=== PATIENT | male | born 1975 | race Caucasian/White ===

== ENCOUNTER 2021-08-25 15:49 | Emergency (ER) | payer MEDICAID, SELFPAY ==
[2021-08-25 16:00] VITALS: BP 120/71; PULSE 65; RESP 16; TEMP 37.1; O2SAT 97
--- NOTE | 2021-08-25 16:39 | W.ED.WOUNDLC ---
Documented by User: Nick Gale DO 09/03/21 18:27 HPI - Wound/Laceration General: Chief Complaint: Wound/Laceration Stated Complaint: Left leg injury Time Seen by Provider: 08/25/21 16:14 Source: patient Mode of arrival: ambulatory Limitations: no limitations History of Present Illness: 46-year-old male presents emergency room from urgent care. He had a piece of kiana still he was carrying slipped and he sustained a laceration on the medial posterior aspect of his left calf. He was referred here after initial evaluation in urgent care. It does involve the gastroc muscle. No other injury. Onset (ago): minute(s) Extremity Location: Left: lower leg (Medial mid gastroc) Place: work Patient tetanus UTD: No Context: accidental Associated symptoms: Denies chills, fever(s), foreign body sensation, inability to move, nausea, numbness, pain, syncope or vomiting Review of Systems Const: Denies: fever(s), chills, fatigue or malaise ENMT: Denies: throat pain, ear or mastoid pain, nasal discharge or nasal congestion Card: Denies: syncope Resp: Denies: dyspnea, productive cough or non-productive cough GI: Denies: abdominal pain, nausea or vomiting : Denies: flank pain, difficulty urinating, dysuria, urinary frequency or urinary urgency Skin/Breast: Denies: rash or pruritus PFSH ED PFSH: Family History Sister Diabetes Denies family history of CAD (coronary artery disease) Clotting disorder Psychiatric illness Bleeding disorder Cancer Hypertension Stroke Social History Smoking and tobacco status: never smoked Second hand smoke exposure: No Alcohol intake: current Alcohol intake frequency: holidays/special occasions only Alcohol type: beer and hard liquor Adopted: No Caregiver/support person: Yes Lives independently: Yes Household members: spouse and children Marital status: service: No Current occupational status: employed Current occupation: self Current gender identity: Male Kalpana/[employer]: [employer] Special kalpana needs: Yes (will not recieve blood) Agree to transfusion: No Physical Exam Const: COMMON NORMALS: no acute distress GENERAL APPEARANCE: cooperative and comfortable ORIENTATION/CONSCIOUSNESS: Yes awake, Yes oriented to person, Yes oriented to place and Yes oriented to time HENMT: COMMON NORMALS: normocephalic, atraumatic and hearing grossly normal bilaterally HEAD & SCALP: normocephalic and atraumatic Neck/C-Spine: COMMON NORMALS: no JVD Resp: COMMON NORMALS: normal respiratory effort, No retractions, No use of accessory muscles and clear to auscultation bilaterally AUSCULTATION: clear to auscultation bilaterally Cardio: COMMON NORMALS: no JVD, regular rate, regular rhythm and No murmurs present (Cardio) RATE: regular rate RHYTHM: regular rhythm GI: COMMON NORMALS: Soft to palpation and No hepatosplenomegaly present AUSCULTATION: Yes normoactive bowel sounds PALPATION: Yes Soft to palpation, No Tenderness to palpation present (GI), No Guarding due to palpation present (GI) and Yes No hepatosplenomegaly present Extremity: COMMON NORMALS: capillary refill normal, no clubbing, cyanosis or edema, no calf tenderness and no pedal edema EXTREMITY IMAGE (BACK): 1. laceration Neuro: SENSORIUM/ORIENTATION: Yes oriented to person, Yes oriented to place and Yes oriented to time Skin: COMMON NORMALS: no rashes or lesions noted GENERAL SKIN EXAM: no rashes or lesions noted Course Vital Signs: Vital signs: Vital Signs Temperature 98.7 F 08/25/21 16:00 Pulse Rate 65 08/25/21 16:00 Respiratory Rate 16 08/25/21 16:00 Blood Pressure 120/71 08/25/21 16:00 Pulse Oximetry 97 08/25/21 16:00 Discharge Plan Discharge Patient Disposition: Home Clinical Impression: Laceration, Gastrocnemius tear Condition: Stable Prescriptions: New hydrocodone-acetaminophen 5-325 mg tablet 1 tab PO Q6H PRN (Reason: pain) Qty: 15 0RF Discharge Orders: Discharge ED (Routine); Ordered 08/25/21 Ordered By: Nick Gale Discharge Diet: Usual diet Discharge Activity: Resume usual activity Patient Instructions: Opioid Safety Activity Restrictions/Additional Instructions: Non-weightbearing on the left leg. Keep splint in place until released. design engineering manager will make arrangements for follow-up. Coding Level of Care Code ED Classifying Machine Operator for Chg Fwd Documented by User: SHANNAN Foley 08/26/21 07:07 HPI - Wound/Laceration General: Chief Complaint: Wound/Laceration Stated Complaint: Left leg injury Time Seen by Provider: 08/25/21 16:14 PFSH ED PFSH: Family History Sister Diabetes Denies family history of CAD (coronary artery disease) Clotting disorder Psychiatric illness Bleeding disorder Cancer Hypertension Stroke Social History Smoking and tobacco status: never smoked Second hand smoke exposure: No Alcohol intake: current Alcohol intake frequency: holidays/special occasions only Alcohol type: beer and hard liquor Adopted: No Caregiver/support person: Yes Lives independently: Yes Household members: spouse and children Marital status: service: No Current occupational status: employed Current occupation: self Current gender identity: Male Kalpana/[employer]ian: [employer] Special kalpana needs: Yes (will not recieve blood) Agree to transfusion: No Physical Exam Extremity: OTHER: patient has an approximate 5.5cm laceration to the posterior/medial aspect of his L calf; there is no bleeding currently; laceration involves gastrocnemius fascia and muscle EXTREMITY IMAGE (BACK): 1. laceration Procedures Laceration Laceration 1: Site: lower extremity Side (If applicable): left Size (cm): 5.5 Description: linear Depth: involves muscle layer Local Anesthetic: lidocaine 1% and with epi Amount of anesthesia used (mL): 5.0 Pre-repair: wound explored and irrigated extensively Skin layer closed with: nylon and vicryl Size (cm): 4-0 Number of sutures: 10 Technique: running Muscle layer closed with: vicryl Size: 4-0 Number of sutures: 4 Technique: simple, interrupted Course Vital Signs: Vital signs: Vital Signs Temperature 98.7 F 08/25/21 16:00 Pulse Rate 65 08/25/21 16:00 Respiratory Rate 16 08/25/21 16:00 Blood Pressure 120/71 08/25/21 16:00 Pulse Oximetry 97 08/25/21 16:00 MDM - Wound/Laceration Medical Decision Making I was consulted by Dr. Gale to repair patient's left calf laceration. This was repaired as documented. Other than laceration repair I did not actively participate in patient's care. Plan will be for splint placement following laceration repair. See Dr. Gale's note for remainder of disposition and plan-ES Discharge Plan Discharge Patient Disposition: Home Clinical Impression: Laceration, Gastrocnemius tear Condition: Stable Prescriptions: New hydrocodone-acetaminophen 5-325 mg tablet 1 tab PO Q6H PRN (Reason: pain) Qty: 15 0RF Discharge Orders: Discharge ED (Routine); Ordered 08/25/21 Ordered By: Nick Gale Discharge Diet: Usual diet Discharge Activity: Resume usual activity Patient Instructions: Opioid Safety Activity Restrictions/Additional Instructions: Non-weightbearing on the left leg. Keep splint in place until released. design engineering manager will make arrangements for follow-up. Coding Level of Care Code ED Classifying Machine Operator for Ron Nicole
[2021-08-25] MEDS: tetanus-dipt-pertussis 0.5 mL SDV IM (17:00)
[2021-08-25] MEDS: ceFAZolin 1,000 MG in sodium chloride 0.9% (plus) 50 ML 100 MG IV (17:03)
== END 2021-08-25 17:55 | disposition home or self-care (01) ==
PROVIDERS: Emergency Provider Family Medicine
DX: S86.822A Laceration of other muscle(s) and tendon(s) at lower leg level, left leg, initial encounter (principal); W45.8XXA Other foreign body or object entering through skin, initial encounter; Z23 Encounter for immunization
CPT/HCPCS: 13121; 29515; 90471; 90715; 96365; 99283; J0690